=== PATIENT | male | born 1990 | race Caucasian/White ===

== ENCOUNTER 2019-03-17 12:30 | Emergency (ER) | payer MEDICAID ==
[~2019-03-17] VITALS: Ht 175.3 cm; Wt 77.1 kg
--- NOTE | 2019-03-17 12:55 | NUR ---
Patient in with co left wrist pain, patient had previously had problem with wrist from last year.
--- NOTE | 2019-03-17 13:08 | NUR ---
Patient to radiology for left wrist xray.
== END 2019-03-17 13:54 | disposition home or self-care (01) ==
LOC: ER 12:30
DX: M25.532 Pain in left wrist (principal)
CPT/HCPCS: 73110; A4663